=== PATIENT | female | born 1970 | race Caucasian/White ===

== ENCOUNTER 2020-11-30 15:41 | Emergency (ER) | payer MEDICARE, OTHER ==
[~2020-11-30] VITALS: Ht 160 cm; Wt 79.8 kg
--- NOTE | 2020-11-30 16:09 | NUR ---
BIB RA 62,C/O BODY PAIN AFTER USING METH AND ALCOHOL. RATES PAIN 8/10. IN ROOM AIR AND DENIES SOB. RESPIRATION REGULAR AND UNLABORED. WILL CONTINUE TO MONITOR THE PATIENT.
[2020-11-30] MEDS ORDERED: IV NS 0.9% 1,000 ML BAG IV ONE (16:30)
[2020-11-30] MEDS ORDERED: KETOROLAC TROMETHAMINE INJ 30 MG/ML VIAL IV ONE ×2 (16:30→20:00)
[2020-11-30] MEDS ORDERED: ONDANSETRON HCL/PF 4 MG/2 ML VIAL IVP ONE (16:30)
[2020-11-30] MEDS ORDERED: ONDANSETRON HCL/PF 4 MG/2 ML VIAL ONE (16:37)
[2020-11-30 17:05] LABS: BASOPHILS # (AUTO) 0.1 K/uL (0.0-0.2); BASOPHILS % (AUTO) 0.8 % (0.0-2.0); EOSINOPHILS % (AUTO) 2.8 % (0.0-6.0); HEMATOCRIT 43 % (33-45); HEMOGLOBIN 14.3 g/dL (11.5-14.8); LYMPHOCYTES # (AUTO) 2.3 K/uL (0.8-4.8); LYMPHOCYTES % (AUTO) 21.4 % (20.0-44.0); MEAN CORPUSCULAR HGB CONC 33 g/dl (31.0-36.0); MEAN CORPUSCULAR VOLUME 93 fL (82-100); MONOCYTES # (AUTO) 0.8 K/uL (0.1-1.30); MONOCYTES % (AUTO) 7.1 % (2.0-12.0); NEUTROPHILS # (AUTO) 7.2 K/uL (1.8-8.9); NEUTROPHILS % (AUTO) 67.9 % (43.0-81.0); PLATELET COUNT (AUTO) 356 K/uL (150-450); WHITE BLOOD COUNT (AUTO) 10.7 K/uL (4.3-11.0)
--- NOTE | 2020-11-30 17:09 | NUR ---
COVID SWAB DONE, URINE COLLECTED AND SENT TO THE LAB
[2020-11-30 18:37] LABS: ALBUMIN 3.5 g/dL (3.4-5.0); BILIRUBIN,TOTAL 0.2 mg/dL (0.2-1.0); CALCIUM, SERUM 8.2 mg/dL (8.5-10.1); POTASSIUM 3.8 mmol/L (3.5-5.1); TOTAL PROTEIN, SERUM 7.4 g/dL (6.4-8.2)
[2020-11-30 18:54] LABS: BILIRUBIN,URINE Negative (NEGATIVE); COLOR,URINE YELLOW (YELLOW); LEUKOCYTE ESTERASE ,URINE Small (NEGATIVE); NITRITE, URINE Negative (NEGATIVE); PROTEIN,URINE Trace mg/dl (NEGATIVE); UGLUCOSE Negative (NEGATIVE); UROBILINOGEN,URINE 0.2 EU/dL (0.2)
[2020-11-30 18:59] LABS: BACTERIA,URINE 1+ /HPF (None Seen); SQUAMOUS EPITHELIAL CELL,UR Few /HPF (None Seen)
[2020-11-30] MEDS ORDERED: CEPHALEXIN MONOHYDRATE 500 MG CAPSULE PO ONE ×2 (19:27→19:30)
[2020-11-30] MEDS ORDERED: PHEN-705 PO (19:53)
[2020-11-30] MEDS ORDERED: CEPH500T PO (19:53)
[2020-11-30] MEDS ORDERED: KETOROLAC TROMETHAMINE INJ 30 MG/ML VIAL ONE (20:23)
--- NOTE | 2020-11-30 20:47 | NUR ---
IV removed. Catheter intact and site benign. Pressure and 4x4 applied to site. No bleeding noted. Patient discharged to home in stable condition. Written and verbal after care instructions given. Patient verbalizes understanding of instruction and RX. Pt refused to sign dischagre paper.
--- NOTE | 2020-11-30 20:47 | NUR ---
Note undone in ED - 11/30/20 at 2047 by TRENTON IV removed. Catheter intact and site benign. Pressure and 4x4 applied to site. No bleeding noted.
[2020-11-30 20:48] VITALS: BP 139/73
== END 2020-11-30 20:49 | disposition home or self-care (01) ==
LOC: ER 16:37
DX: N39.0 Urinary tract infection, site not specified (principal); F15.10 Other stimulant abuse, uncomplicated; Z20.822 Contact with and (suspected) exposure to COVID-19; R03.0 Elevated blood-pressure reading, without diagnosis of hypertension; Z59.0 Homelessness
CPT/HCPCS: 36415; 80053; 80307; 81001; 83690; 84702; 85025; 87426; 96361; 96374; 96375; 96376; 99284; J1885 ×2; J2405; J7030; C9803

== ENCOUNTER 2021-07-25 18:37 | Emergency (ER) | payer MEDICARE, OTHER ==
[~2021-07-25] VITALS: Ht 160 cm; Wt 72.6 kg
[~2021-07-25 18:37] MED LIST: CEPH500T PO; PHEN-705 PO
--- NOTE | 2021-07-25 19:05 | NUR ---
PT BIBPA C/O ABD PAIN, NAUSEA, AND DIARRHEA X 3 DAYS. PT AAOX4 BREATHING EVENLY AND UNLABORED. PT ATTACHED TO MONITOR AND POX. PT GIVEN BLANKET AND CALL LIGHT WITHIN REACH. WILL CONTINUE TO MONITOR.
[2021-07-25] MEDS ORDERED: MAG HYDROX/AL HYDROX/SIMETH 30 ML UDC ONE (19:27)
[2021-07-25] MEDS ORDERED: LIDOCAINE VISCOUS 2% UD 15 ML UDC ONE (19:28)
[2021-07-25] MEDS ORDERED: FAMOTIDINE (20 MG) 20 MG TABLET ONE (19:28)
[2021-07-25] MEDS: MAG HYDROX/AL HYDROX/SIMETH 30 ML UDC PO ONE (19:30)
[2021-07-25] MEDS: FAMOTIDINE (20 MG) 20 MG TABLET PO ONE (19:30)
[2021-07-25] MEDS: LIDOCAINE VISCOUS 2% UD 15 ML UDC MM ONE (19:30)
[2021-07-25] MEDS: IV NS 0.9% 1,000 ML BAG IV ONE (19:45)
--- NOTE | 2021-07-25 19:46 | NUR ---
taken to radiology
--- NOTE | 2021-07-25 20:06 | NUR ---
blood sent to lab
[2021-07-25 20:08] LABS: BILIRUBIN,URINE NEGATIVE (NEGATIVE); COLOR,URINE YELLOW (YELLOW); LEUKOCYTE ESTERASE ,URINE NEGATIVE (NEGATIVE); NITRITE, URINE NEGATIVE (NEGATIVE); PH,URINE 6.5 (5.0-8.0); PROTEIN,URINE NEGATIVE (NEGATIVE); UGLUCOSE NEGATIVE (NEGATIVE); UROBILINOGEN,URINE 0.2 EU/dL (0.2)
[2021-07-25 20:34] LABS: BASOPHILS % (AUTO) 0.4 % (0.0-2.0); EOSINOPHILS % (AUTO) 2.3 % (0.0-6.0); HEMATOCRIT 38 % (33-45); HEMOGLOBIN 12.5 g/dL (11.5-14.8); LYMPHOCYTES # (AUTO) 1.8 K/uL (0.8-4.8); LYMPHOCYTES % (AUTO) 22.4 % (20.0-44.0); MEAN CORPUSCULAR HGB CONC 33 g/dl (31.0-36.0); MEAN CORPUSCULAR VOLUME 95 fL (82-100); MONOCYTES # (AUTO) 0.7 K/uL (0.1-1.30); MONOCYTES % (AUTO) 8.3 % (2.0-12.0); NEUTROPHILS # (AUTO) 5.2 K/uL (1.8-8.9); NEUTROPHILS % (AUTO) 66.6 % (43.0-81.0); PLATELET COUNT (AUTO) 343 K/uL (150-450); RED BLOOD CELL COUNT(AUTO) 3.95 MIL/uL (4.0-5.2); WHITE BLOOD COUNT (AUTO) 7.9 K/uL (4.3-11.0)
[2021-07-25 21:03] LABS: CALCIUM, SERUM 8.7 mg/dL (8.5-10.1); CARBON DIOXIDE 26 mmol/L (21-32); CHLORIDE 105 mmol/L (98-107); GLUCOSE 102 mg/dL (74-106); POTASSIUM 3.7 mmol/L (3.5-5.1); SODIUM SERUM 141 mmol/L (136-145); UREA NITROGEN, BLOOD 20 mg/dL (7-18)
[2021-07-25 21:08] LABS: ALANINE AMINOTRANSFERASE 15 U/L (12-78); ALBUMIN 3.3 g/dL (3.4-5.0); ALKALINE PHOSPHATASE 78 U/L (46-116); ASPARTATE AMINOTRANSFERASE 6 U/L (15-37); BILIRUBIN,DIRECT 0.1 mg/dL (0.0-0.2); BILIRUBIN,TOTAL 0.2 mg/dL (0.2-1.0); LIPASE 72 U/L (73-393); TOTAL PROTEIN, SERUM 6.7 g/dL (6.4-8.2)
[2021-07-25] MEDS ORDERED: OMEP20TA5 PO (21:44)
--- NOTE | 2021-07-25 21:59 | NUR ---
Called [facility] for tranport out of [facility] back to pt's [facility]. [facility] ETA 10-15 min.
--- NOTE | 2021-07-25 21:59 | NUR ---
CALLED [facility], GAVE REPORT TO LIT ROMERO DARRIUS
--- NOTE | 2021-07-25 22:00 | NUR ---
[facility] ETA 15MIN
--- NOTE | 2021-07-25 22:20 | NUR ---
GAVE REPORT TO EMS
--- NOTE | 2021-07-25 22:20 | NUR ---
Patient discharged to home in stable condition. Written and verbal after care instructions given. Patient verbalizes understanding of instruction. IV removed. Catheter intact and site benign. Pressure and 4x4 applied to site. No bleeding noted. Pt picked up by ems
[2021-07-25 22:22] VITALS: BP 123/72
== END 2021-07-25 22:20 ==
LOC: ER 18:37
DX: R10.13 Epigastric pain (principal); K21.9 Gastro-esophageal reflux disease without esophagitis; Z87.59 Personal history of other complications of pregnancy, childbirth and the puerperium; Z88.2 Allergy status to sulfonamides; Z88.8 Allergy status to other drugs, medicaments and biological substances; Z60.2 Problems related to living alone; Z79.899 Other long term (current) drug therapy
CPT/HCPCS: 36415; 71045; 74176; 80048; 80076; 81003; 83690; 84484; 85025; 87086; 93005; 96360; 99285; J7030

== ENCOUNTER 2021-10-19 16:07 | Emergency (ER) | payer MEDICARE, OTHER ==
[~2021-10-19] VITALS: Ht 167.6 cm; Wt 83.1 kg
[~2021-10-19 16:07] MED LIST changes: +OMEP20TA5 PO
--- NOTE | 2021-10-19 16:15 | NUR ---
50 YRS FEMALE WAKING IN C/O ABDOMINALE PAIN AND NOT FEELING WILL FOR 3 DAYS NO N/V
--- NOTE | 2021-10-19 16:26 | NUR ---
THE PATIENT LIVES IN [facility] TEL [phone]
--- NOTE | 2021-10-19 16:30 | NUR ---
BLOOD DROW BY LAB TACH
--- NOTE | 2021-10-19 16:45 | NUR ---
RESTING AT THIS TIME ABDOMINAL PAIN SOFT NONE TENDER TO TOUCH
[2021-10-19] MEDS ORDERED: SERT50TA12 PO (16:56)
[2021-10-19] MEDS ORDERED: DOCU100T28 PO (16:56)
[2021-10-19] MEDS ORDERED: DOXY100C2 PO (16:56)
[2021-10-19] MEDS ORDERED: RISP2TAB85 PO (16:56)
[2021-10-19] MEDS ORDERED: LOSA100T31 PO (16:56)
[2021-10-19] MEDS ORDERED: HYDR-4077 PO (16:56)
[2021-10-19] MEDS ORDERED: LUBI24CA5 PO (16:56)
[2021-10-19] MEDS ORDERED: CIPR250T4 PO (16:56)
[2021-10-19 17:10] LABS: BASOPHILS % (AUTO) 0.5 % (0.0-2.0); EOSINOPHILS % (AUTO) 1.7 % (0.0-6.0); HEMATOCRIT 38 % (33-45); HEMOGLOBIN 12.9 g/dL (11.5-14.8); LYMPHOCYTES # (AUTO) 1.8 K/uL (0.8-4.8); LYMPHOCYTES % (AUTO) 21.5 % (20.0-44.0); MEAN CORPUSCULAR HGB CONC 33 g/dl (31.0-36.0); MEAN CORPUSCULAR VOLUME 93 fL (82-100); MONOCYTES # (AUTO) 0.5 K/uL (0.1-1.30); MONOCYTES % (AUTO) 5.8 % (2.0-12.0); NEUTROPHILS % (AUTO) 70.5 % (43.0-81.0); PLATELET COUNT (AUTO) 335 K/uL (150-450); RED BLOOD CELL COUNT(AUTO) 4.15 MIL/uL (4.0-5.2); WHITE BLOOD COUNT (AUTO) 8.5 K/uL (4.3-11.0)
--- NOTE | 2021-10-19 17:30 | NUR ---
[facility] SENT TO LAB
[2021-10-19 17:42] LABS: ALBUMIN 3.4 g/dL (3.4-5.0); BILIRUBIN,DIRECT 0.1 mg/dL (0.0-0.2); BILIRUBIN,TOTAL 0.4 mg/dL (0.2-1.0); CALCIUM, SERUM 8.8 mg/dL (8.5-10.1); CREATININE 0.8 mg/dL (0.6-1.3); POTASSIUM 3.7 mmol/L (3.5-5.1)
[2021-10-19] MEDS ORDERED: MORPHINE SULFATE INJ 2 MG/ML DISP.SYRIN ONE (17:53)
[2021-10-19] MEDS ORDERED: MORPHINE SULFATE INJ 2 MG/ML DISP.SYRIN IV ONE (18:00)
[2021-10-19] MEDS ORDERED: IV NS 0.9% 1,000 ML IV ONE (18:00)
--- NOTE | 2021-10-19 18:21 | NUR ---
DINESES ABDOMINALE PAIN
[2021-10-19 18:28] LABS: BILIRUBIN,URINE NEGATIVE (NEGATIVE); COLOR,URINE YELLOW (YELLOW); LEUKOCYTE ESTERASE ,URINE MODERATE (NEGATIVE); NITRITE, URINE NEGATIVE (NEGATIVE); PROTEIN,URINE NEGATIVE (NEGATIVE); UGLUCOSE NEGATIVE (NEGATIVE); UROBILINOGEN,URINE 0.2 EU/dL (0.2)
[2021-10-19 18:47] LABS: BACTERIA,URINE 2+ /HPF (None Seen); RBC,URINE 0-2 /HPF (0-2); SQUAMOUS EPITHELIAL CELL,UR 21-50 /HPF (None Seen); WBC,URINE 21-50 /HPF (0-3)
--- NOTE | 2021-10-19 19:21 | NUR ---
HANDD OFF TO RACHID SHARMA
[2021-10-19] MEDS ORDERED: CEPH500C2 PO (20:05)
--- NOTE | 2021-10-19 21:23 | NUR ---
[facility] C[facility]ED FOR BLS BACK HOME ETA PER PATTY - 75 TO 90 MIN
--- NOTE | 2021-10-19 22:20 | NUR ---
IV removed. Catheter intact and site benign. Pressure and 4x4 applied to site. No bleeding noted.
--- NOTE | 2021-10-19 22:23 | NUR ---
REPORT GIVEN TO DONNA FROM [facility] FOR TRANSPORT
[2021-10-19 22:49] VITALS: BP 132/76
== END 2021-10-19 22:50 ==
LOC: ER 16:17
DX: N39.0 Urinary tract infection, site not specified (principal); I11.0 Hypertensive heart disease with heart failure; I50.9 Heart failure, unspecified; J44.9 Chronic obstructive pulmonary disease, unspecified; F41.9 Anxiety disorder, unspecified; F32.A Depression, unspecified; Z88.2 Allergy status to sulfonamides; Z88.1 Allergy status to other antibiotic agents; Z98.890 Other specified postprocedural states; Z60.2 Problems related to living alone; Z79.899 Other long term (current) drug therapy
CPT/HCPCS: 36415; 74176; 80048; 80076; 81001; 83690; 84703; 85025; 87086; 96361; 96374; 99284; J2270; J7030